=== PATIENT | female | born 1990 | race Caucasian/White ===

== ENCOUNTER 2017-04-14 23:26 | Emergency (ER) | payer OTHER ==
[~2017-04-14] VITALS: Ht 172.7 cm; Wt 110.0 kg
[~2017-04-14 23:26] MED LIST: IBUP800T25 PO; PERCOCET PO; PRENAT PO
[2017-04-14 23:31] VITALS: Ht 172.7 cm; Wt 110.0 kg
--- NOTE | 2017-04-14 23:45 | ERD ---
ER Documentation Chief Complaint Chief Complaint diffuse abd pain x 3 days HPI The patient is a 26-year-old female, presenting to the ER because of diffuse abdominal pain intermittently for the last 3 days, worse today, 10/10, worse with eating and associated with dysuria. She denies fever, chills, chest pain, dyspnea, vomiting, diarrhea or constipation. She does not smoke nor drink Past medical history: None Surgical history: 3 ROS All systems reviewed and are negative except as per history of present illness. Medications Home Meds Active Scripts Tramadol HCl (Tramadol HCl) 50 Mg Tablet, 50 MG PO Q6 Y for PAIN, #20 TAB Prov:FILIPE HURST MD 04/15/17 Discontinued Reported Medications Multivit/Min/Fol Ac/Iron/Pren* ( S*) 1 Tab Tab, 1 TAB PO DAILY, TAB 03/18/15 Discontinued Scripts Oxycodone Hcl/Acetaminophen (Percocet) 1 Tab Tab, 2 TAB PO Q4H Y for PAIN LEVEL 6-10, #30 TAB 0 Refills Prov:EFFIE MURRAY MD 03/20/15 Ibuprofen* (Ibuprofen*) 800 Mg Tab, 800 MG PO Q8, #20 0 Refills Prov:EFFIE MURRAY MD 03/20/15 Allergies Allergies: Coded Allergies: No Known Allergy (Verified , 04/14/17) PMhx/Soc History of Surgery: Yes () Anesthesia Reaction: No Hx Neurological Disorder: No Hx Respiratory Disorders: No Hx Cardiac Disorders: No Hx Psychiatric Problems: No Hx Miscellaneous Medical Probl: No Hx Alcohol Use: No Hx Substance Use: No Hx Tobacco Use: No Physical Exam Vitals Vital Signs Date Time Temp Pulse Resp B/P Pulse Ox O2 Delivery O2 Flow Rate FiO2 04/14/17 23:52 98.5 82 20 130/81 98 Room Air 04/14/17 23:31 98.5 98 20 127/80 98 Physical Exam Const: No acute distress. Head: Atraumatic. Eyes: Normal Conjunctiva. ENT: Normal External Ears, Nose and Mouth. Neck: Full range of motion. No meningismus. Resp: Clear to auscultation bilaterally. Cardio: Regular rate and rhythm. Abd: Soft, non distended, normal bowel sounds, vague and diffuse abdominal tenderness, more tender in the left side of the abdomen, no rigidity, rebound, CVA tenderness Skin: No petechiae or rashes. Back: No midline or flank tenderness. Ext: No cyanosis, or edema. Neur: Awake and alert. No focal deficit Psych: Normal Mood and Affect. Result Diagram: 04/15/17 0018 04/15/1717 Results 24 hrs Laboratory Tests Test 04/15/17 00:08 04/15/17 00:18 Bedside Urine pH (LAB) 6.0 Bedside Urine Protein (LAB) Negative Bedside Urine Glucose (UA) Negative Bedside Urine Ketones (LAB) 1+ Bedside Urine Blood Trace-intact Bedside Urine Nitrite (LAB) Negative Bedside Urine Leukocyte Esterase (L Negative White Blood Count 10.310^3/ul Red Blood Count 4.9010^6/ul Hemoglobin 11.8g/dl Hematocrit 38.2% Mean Corpuscular Volume 78.0fl Mean Corpuscular Hemoglobin 24.1pg Mean Corpuscular Hemoglobin Concent 30.9g/dl Red Cell Distribution Width 15.7% Platelet Count 30114^3/UL Mean Platelet Volume 10.1fl Neutrophils % 70.1% Lymphocytes % 19.1% Monocytes % 8.3% Eosinophils % 1.8% Basophils % 0.3% Nucleated Red Blood Cells % 0.0/100WBC Neutrophils # 7.210^3/ul Lymphocytes # 2.010^3/ul Monocytes # 0.910^3/ul Eosinophils # 0.210^3/ul Basophils # 0.010^3/ul Nucleated Red Blood Cells # 0.010^3/ul Sodium Level 141mmol/L Potassium Level 3.8mmol/L Chloride Level 107mmol/L Carbon Dioxide Level 24mmol/L Anion Gap 14 Blood Urea Nitrogen 13mg/dl Creatinine 0.93mg/dl Glucose Level 99mg/dl Calcium Level 9.3mg/dl Total Bilirubin 0.4mg/dl Direct Bilirubin 0.00mg/dl Indirect Bilirubin 0.4mg/dl Aspartate Amino Transf (AST/SGOT) 22IU/L Alanine Aminotransferase (ALT/SGPT) 41IU/L Alkaline Phosphatase 71IU/L Total Protein 8.0g/dl Albumin 4.1g/dl Globulin 3.90g/dl Albumin/Globulin Ratio 1.05 Lipase 73U/L Current Medications Medications (Trade) Dose Ordered Sig/Bailey Route PRN Reason Start Time Stop Time Status Last Admin Dose Admin Morphine Sulfate (morphine) 4 mg ONCE STAT IV 04/15/17 00:15 04/15/17 00:17 DC 04/15/17 00:25 Ondansetron HCl (Zofran Inj) 4 mg ONCE STAT IV 04/15/17 00:15 12 00:17 DC 04/15/17 00:25 Procedures/[place] [id number] Radiology Main Line: [phone] DIAGNOSTIC IMAGING REPORT Patient: CRAIG OQUENDO : 1990 Age: 26 Sex: F MR #: [id number] DOS: 04/15/17 0015 Ordering MD: FILIPE HURST MD Location: E/R Room/Bed: PROCEDURE: CT ABDOMEN/PELVIS WITHOUT CONTRAST CLINICAL INDICATION: 26-year-old female with abdominal pain. TECHNIQUE: The study was performed utilizing a [id number] VCT 64-slice CT scanner. Direct axial sections were obtained through the abdomen and pelvis without the use of intravenous contrast material. Sagittal and coronal reformations were obtained. One or more of the following dose reduction techniques were utilized: automated exposure control, adjustment of the mA and/ or kV according to patient's size and/or the use of iterative reconstruction technique. DICOM images are available. The images were reviewed on a PACS workstation. CTD/vol = 23.4 mGy; Total Exam DLP = 1377.7 mGy-cm. COMPARISON: None. FINDINGS: The lung bases are unremarkable. There is no evidence for significant pleural effusion. The liver has a normal size and contour. There is diffuse decreased density throughout the liver consistent with fatty infiltration without focal areas of abnormal density. No intrahepatic nor extrahepatic biliary ductal dilatation is seen. The gallbladder demonstrates no wall thickening nor pericholecystic fluid. No biliary stones are evident. The pancreas is without areas of abnormal attenuation. The spleen is identified and has a normal size without abnormal density. The adrenal glands are unremarkable. The kidneys are without abnormal density. No hydroureteronephrosis nor nephroureterolithiasis is evident. The urinary bladder is decompressed. There is fecalization of the small bowel with mild retained stool within the ascending and transverse colon without obstruction. The appendix is visualized and is without abnormal thickening or surrounding inflammatory reaction. The uterus is unremarkable. There is mild pelvic free fluid. The aortoiliac vessels are without aneurysmal dilatation. The osseous structures are intact. IMPRESSION: 1. Hepatic steatosis. 2. No CT evidence for obstructive uropathy or renal calculi. 3. Fecalization of the small bowel with mild retained stool within the proximal colon without obstruction. 4. No CT evidence for appendicitis. 5. Mild pelvic free fluid. .Shamar Garcia MD, MD Date Time Electronically viewed and signed by .Shamar Garcia MD, MD on 04/15/2017 01:04 .M/ CC: FILIPE HURST MD MEDICAL MAKING DECISION: The patient is a 26-year-old female, presenting with acute abdominal pain of unclear etiology, is stable for outpatient follow-up. She was treated with morphine 4 mg IV for pain, Zofran 4 mg IV for nausea and 1 L normal saline for clinical dehydration with good response. The differential diagnoses considered include but are not limited to cholelithiasis, cholecystitis, cystitis, pancreatitis, hepatitis, gastritis, peptic ulcer disease, gastric ulcer, appendicitis, diverticulitis, cholangitis, choledocholithiasis, partial small bowel obstruction. Departure Diagnosis: Primary Impression: Abdominal pain Additional Impressions: Hepatic steatosis Anemia Condition: Good Comments She was discharged with [facility] The patient's blood pressure was elevated (>120/80) but appears stable without evidence of hypertension emergency or urgency. The patient was counseled about the risks of hypertension and urged to pursue outpatient monitoring and therapy within a week with their primary care physician. I discussed the findings with the patient. I advised the patient to follow-up with the primary physician in about 1-2 days, sooner if needed and return if any concern. Disclaimer: Inadvertent spelling and grammatical errors are likely due to EHR/ dictation software use and do not reflect on the overall quality of patient care. Also, please note that the electronic time recorded on this note does not necessarily reflect the actual time of the patient encounter. FILIPE HURST MD Apr 14, 2017 23:45
[2017-04-14 23:52] VITALS: BP 130/81; PULSE 82; RESP 20; TEMP 98.5
[2017-04-15 00:10] LABS: URINE BLOOD (Dip) POC Trace-intact (NEGATIVE)
[2017-04-15] MEDS ORDERED: ONDANSETRON 4 MG INJ IV STA (00:15)
[2017-04-15] MEDS ORDERED: morphine 4 MG/ML VIAL IV STA (00:15)
[2017-04-15 00:24] LABS: BASOPHILS % 0.3 % (0.0-2.0); EOSINOPHILS # 0.2 10^3/ul (0.0-0.5); EOSINOPHILS % 1.8 % (0.0-7.0); HEMATOCRIT 38.2 % (37.0-47.0); HEMOGLOBIN 11.8 g/dl (12.0-16.0); LYMPHOCYTES % 19.1 % (15.0-51.0); MEAN CORPUSCULAR HEMOGLOBIN 24.1 pg (29.0-33.0); MEAN CORPUSCULAR HGB CONC 30.9 g/dl (32.0-37.0); MEAN PLATELET VOLUME 10.1 fl (7.4-10.4); MONOCYTE # 0.9 10^3/ul (0.3-0.9); MONOCYTES % 8.3 % (0.0-11.0); NEUTROPHIL # 7.2 10^3/ul (1.6-7.5); NEUTROPHILS % 70.1 % (39.0-77.0); PLATELET COUNT 298 10^3/UL (140-415); RED CELL DISTRIBUTION WIDTH 15.7 % (11.5-14.5); WHITE BLOOD COUNT 10.3 10^3/ul (4.8-10.8)
[2017-04-15 00:41] LABS: ALBUMIN 4.1 g/dl (3.3-4.9); ALBUMIN/GLOBULIN RATIO 1.05; BILIRUBIN,INDIRECT 0.4 mg/dl (0-1.1); BILIRUBIN,TOTAL 0.4 mg/dl (0.2-1.3); CALCIUM 9.3 mg/dl (8.4-10.2); CREATININE 0.93 mg/dl (0.44-1.00); POTASSIUM 3.8 mmol/L (3.5-5.1)
--- NOTE | 2017-04-15 01:04 | RADRPT ---
PROCEDURE: CT ABDOMEN/PELVIS WITHOUT CONTRAST CLINICAL INDICATION: 26-year-old female with abdominal pain. TECHNIQUE: The study was performed utilizing a [employer] 2000 VCT 64-slice CT scanner. Direct axia l sections were obtained through the abdomen and pelvis without the use of intravenous contrast mate rial. Sagittal and coronal reformations were obtained. One or more of the following dose reduction t echniques were utilized: automated exposure control, adjustment of the mA and/or kV according to pat ient's size and/or the use of iterative reconstruction technique. DICOM images are available. The im ages were reviewed on a PACS workstation. CTD/vol = 23.4 mGy; Total Exam DLP = 1377.7 mGy-cm. COMPARISON: None. FINDINGS: The lung bases are unremarkable. There is no evidence for significant pleural effusion. The liver has a normal size and contour. There is diffuse decreased density throughout the liver consistent wi th fatty infiltration without focal areas of abnormal density. No intrahepatic nor extrahepatic bili marleen ductal dilatation is seen. The gallbladder demonstrates no wall thickening nor pericholecystic f luid. No biliary stones are evident. The pancreas is without areas of abnormal attenuation. The spl een is identified and has a normal size without abnormal density. The adrenal glands are unremarkabl e. The kidneys are without abnormal density. No hydroureteronephrosis nor nephroureterolithiasis is evident. The urinary bladder is decompressed. There is fecalization of the small bowel with mild ret ained stool within the ascending and transverse colon without obstruction. The appendix is visualize d and is without abnormal thickening or surrounding inflammatory reaction. The uterus is unremarkable. There is mild pelvic free fluid. The aortoiliac vessels are without aneurysmal dilatat ion. The osseous structures are intact. IMPRESSION: 1. Hepatic steatosis. 2. No CT evidence for obstructive uropathy or renal calculi. 3. Fecalization of the small bowel with mild retained stool within the proximal colon without obstr uction. 4. No CT evidence for appendicitis. 5. Mild pelvic free fluid. .Shamar Garcia MD, Date Time Electronically viewed and signed by .Shamar Garcia MD, on 04/15/2017 01:04 .[place]
[2017-04-15] MEDS ORDERED: TRAM50TA2 PO (01:18)
== END 2017-04-15 01:28 | disposition home or self-care (01) ==
LOC: E/R 23:26
DX: K76.0 Fatty (change of) liver, not elsewhere classified (principal); D64.9 Anemia, unspecified
CPT/HCPCS: 36415; 74176; 80053; 81003; 83690; 85025; 96374; 96375; 99285; J2270; J2405